=== PATIENT | female | born 2000 | race Caucasian/White ===

== ENCOUNTER 2022-12-17 22:45 | Emergency (ER) | payer SELFPAY ==
[~2022-12-17] VITALS: Ht 155 cm; Wt 104.0 kg
[2022-12-17 22:49] VITALS: BP 119/83
--- NOTE | 2022-12-17 23:14 | ED Back Pain ---
General Chief Complaint: Back Problems Stated Complaint: BACK PAIN Source of Information: Patient History of Present Illness Date Seen by Provider: Dec 17, 2022 Time Seen by Provider: 23:00 Initial Comments PT ARRIVES VIA POV FROM HOME C/O LEFT LOWER BACK / LEFT FLANK PAIN X 2-3 DAYS NO RADIATION OF PAIN NOTHING IMPROVES PAIN PAIN IS WORSE WITH WALKING OR LAYING ON LEFT SIDE. NO PARESTHESIAS OR MOTOR DEFICITS NO URINARY SYMPTOMS NO FEVER + NAUSEA, NO VOMITING. NO INJURY OR UNUSUAL ACTIVITY NO HISTORY OF SIMILAR NO RELIEF WITH TYLENOL AND IBUPROFEN 2 HOURS AGO LMP--IUD IN PLACE, SINCE 09/2021. NO PERIOD SINCE THEN NO CHRONIC MEDICAL PROBLEMS, NO PRIOR SURGERIES Other Comments PCP: Allergies and Home Medications Allergies Coded Allergies: No Known Drug Allergies (Unverified , 12/17/22) Patient Home Medication List Cefdinir (Cefdinir) 300 Mg Capsule, 300 MG PO BID Prescribed by: CHARLOTTE ZAVALETA on 12/18/2235 Cyclobenzaprine HCl (Cyclobenzaprine HCl) 10 Mg Tablet, 10 MG PO Q8H PRN for SPASMS Prescribed by: CHARLOTTE ZAVALETA on 12/18/2235 Meloxicam (Meloxicam) 15 Mg Tablet, 15 MG PO DAILY Prescribed by: CHARLOTTE ZAVALETA on 12/18/2235 Review of Systems Constitutional: no symptoms reported Respiratory: no symptoms reported Cardiovascular: no symptoms reported Gastrointestinal: see HPI; No abdominal pain, No constipation; nausea Genitourinary: no symptoms reported : No Control/STD Prophylaxis: IUD Musculoskeletal: see HPI, back pain Skin: no symptoms reported Psychiatric/Neurological: No Symptoms Reported Past [id number] Hx Patient Social History Tobacco Use?: No Substance use?: No Alcohol Use?: No Past Medical History Surgeries: No Respiratory: No Cardiac: No Neurological: No Reproductive Disorders: No [employer] History: IUD Genitourinary: No Gastrointestinal: No Musculoskeletal: No Endocrine: Yes (OBESITY) HEENT: No Cancer: No Psychosocial: No Integumentary: No Blood Disorders: No Physical Exam Vital Signs Vital Signs - First Documented 12/17/22 22:49 Temp 36.1 Pulse 97 Resp 18 B/P (MAP) 119/83 (95) Pulse Ox 98 O2 Delivery Room Air Capillary Refill : Height, Weight, BMI Height: '" Weight: lbs. oz. kg; BMI Method: General Appearance: No Apparent Distress, WD/WN, Obese, Other (TEARFUL AT TIMES. WALKS SLOWLY) Cardiovascular: Regular Rate, Rhythm, No Murmur, Normal Peripheral Pulses Respiratory: Normal Breath Sounds, No Accessory Muscle Use, No Respiratory Distress Gastrointestinal: Non Tender, Soft Back: No CVA Tenderness, No Vertebral Tenderness, Decreased Range of Motion Extremity: Normal Inspection Neurologic/Psychiatric: Alert, Oriented x3, No Motor/Sensory Deficits, patrol police lieutenant II- XII Norm as Tested Skin: Normal Color, Warm/Dry; No Rash Progress/Results/Core Measures Results/Orders Lab Results Laboratory Tests Test 12/17/22 23:21 Range/Units Urine Color YELLOW Urine Clarity CLEAR Urine pH 5.5 5-9 Urine Specific [place] >=1.030 1.016-1.022 Urine Protein NEGATIVE NEGATIVE Urine Glucose (UA) NEGATIVE NEGATIVE Urine Ketones TRACE H NEGATIVE Urine Nitrite NEGATIVE NEGATIVE Urine Bilirubin NEGATIVE NEGATIVE Urine Urobilinogen 0.2 < = 1.0 MG/DL Urine Leukocyte Esterase NEGATIVE NEGATIVE Urine RBC (Auto) TRACE-I H NEGATIVE Urine RBC RARE /HPF Urine WBC RARE /HPF Urine Squamous Epithelial Cells 0-2 /HPF Urine Crystals NONE /LPF Urine Bacteria LARGE H /HPF Urine Casts NONE /LPF Urine Mucus SMALL H /LPF Urine Culture Indicated YES My Orders Orders - CHARLOTTE ZAVALETA DO Urine Bedside (12/17/22 23:00) Ua Culture If Indicated (12/17/22 23:00) Urine Culture (12/17/22 23:21) Ct Abd/Pelvis Wo(Kidney Stone) (12/17/22 23:42) Ketorolac Injection (Toradol Injection) (12/18/22 00:45) Orphenadrine Inj (Ed Only) (Norflex Inje (12/18/22 00:45) Ceftriaxone Iv/Im (Rocephin Iv/Im) (12/18/22 00:45) Lidocaine 1% Inj 20 Ml (Xylocaine 1% Inj (12/18/22 00:45) Vital Signs/I&O 12/17/22 22:49 Temp 36.1 Pulse 97 Resp 18 B/P (MAP) 119/83 (95) Pulse Ox 98 O2 Delivery Room Air Progress Progress Note : Progress Note PT IS AFEBRILE WITH STABLE VITALS PT IS NON-TENDER TO PALPATION URINE TEST NEGATIVE UA WITH LARGE BACTERIA, TRACE BLOOD. CT SCAN ORDERED AND DOES NOT SHOW ACUTE PROCESS, INCIDENTAL FINDING OF CHOLELITHIASIS. GIVEN: -TORADOL -NORFLEX -ROCEPHIN DISCUSSED TEST RESULTS, ANTICIPATED COURSE, SYMPTOMATIC TREATMENT, NEED FOR FOLLOW UP AND RETURN PRECAUTIONS. DISCUSSED INCIDENTAL FINDING OF CHOLELITHIASIS, AND SHE IS ASYMPTOMATIC, WILL DEFER TO HER PCP FOR ANY REFERRAL TO SURGEON. REVIEWED PRIOR RECORDS--ER VISIT HERE IN 2006. Diagnostic Imaging Comments CT ABDOMEN/PELVIS--PER [facility] VIA FAX AT 0024 -NO ACUTE FINDINGS IN ABDOMEN OR PELVIS -CHOLELITHIASIS NOTED. NO DUCTAL DILATION Reviewed: Reviewed by Me Departure Impression Primary Impression: UTI (urinary tract infection) Additional Impressions: Cholelithiasis Asymptomatic cholelithiasis Disposition: HOME, SELF-CARE Condition: Stable Departure-Patient Inst. Decision time for Depature: 00:25 Referrals: JOHNNY PACK MD (PCP/Family) Primary Care Physician Patient Instructions: Urinary Tract Infection, Adult ED, Gallstones ED Add. Discharge Instructions: LOTS OF CLEAR LIQUIDS--WATER, BROTH, JELLO, GATORADE NO COFFEE, POP OR TEA MOIST HEAT TO BACK AT 20 MINUTE INTERVALS FOLLOW UP WITH DR. PACK IN 2-3 DAYS FOR FURTHER CARE, RETURN TO ER IF WORSE. All discharge instructions reviewed with patient and/or family. Voiced understanding. Scripts Cyclobenzaprine HCl (Cyclobenzaprine HCl) 10 Mg Tablet 10 MG PO Q8H PRN for SPASMS, #15 TAB 0 Refills Prov: CHARLOTTE ZAVALETA DO 12/18/22 Meloxicam (Meloxicam) 15 Mg Tablet 15 MG PO DAILY, #10 TAB Prov: CHARLOTTE ZAVALETA DO 12/18/22 Cefdinir (Cefdinir) 300 Mg Capsule 300 MG PO BID, #20 CAP Prov: CHARLOTTE ZAVALETA DO 12/18/22 CHARLOTTE ZAVALETA DO Dec 17, 2022 23:14
[2022-12-17 23:34] LABS: BILIRUBIN,URINE NEGATIVE (NEGATIVE); CLARITY,URINE CLEAR; COLOR,URINE YELLOW; GLUCOSE, URINE (UA) NEGATIVE (NEGATIVE); KETONES,URINE TRACE (NEGATIVE); LEUKOCYTE ESTERASE ,URINE NEGATIVE (NEGATIVE); NITRITE,URINE NEGATIVE (NEGATIVE); PH,URINE 5.5 (5-9); PROTEIN,URINE NEGATIVE (NEGATIVE)
[2022-12-17 23:40] LABS: BACTERIA,URINE LARGE /HPF; RBC,URINE RARE /HPF; SQUAMOUS EPITHELIAL CELL,UR 0-2 /HPF; WBC,URINE RARE /HPF
[2022-12-18] MEDS ORDERED: MELO15TA39 PO (00:36)
[2022-12-18] MEDS ORDERED: CEFD300C3 PO (00:36)
[2022-12-18] MEDS ORDERED: CYCL10TA25 PO (00:36)
[2022-12-18] MEDS ORDERED: cefTRIAXone 1,000 MG VIAL (for IV or IM) IM ONE (00:45)
[2022-12-18] MEDS ORDERED: LIDOCAINE 1% INJ 20 ML VIAL INJ ONE (00:45)
[2022-12-18] MEDS ORDERED: ORPHENADRINE 60 MG/2 ML (NORFLEX) AMP (ED ONLY) IM ONE (00:45)
[2022-12-18] MEDS ORDERED: KETOROLAC 60 MG/2 ML VIAL IM ONE (00:45)
--- NOTE | 2022-12-18 07:03 | Diagnostic Imaging Report ---
INDICATION: Abdominal pain TECHNIQUE: Multiple contiguous axial images were obtained through the abdomen and pelvis without the use of intravenous contrast. Auto Exposure Controls were utilized during the CT exam to meet ALARA standards for radiation dose reduction. There is no prior study for comparison The visualized portions of the lung bases are clear. There were no pleural fluid collections. There is no free intraperitoneal air. The liver shows no focal lesion. There is a prominent gallstone in the gallbladder. Spleen, adrenals, and pancreas are normal. The kidneys bilaterally are unremarkable. There is no retroperitoneal mass or adenopathy. There is a small fat-containing periumbilical hernia. Visualized bowel loops show no sign of obstruction. The appendix appears normal. There is an IUD in place in the uterus. There is a small right adnexal cyst measuring 2.5 cm. IMPRESSION: Prominent gallstone in the gallbladder measuring 2.1 cm. Small fat-containing periumbilical hernia. 2.5 cm right adnexal cyst. IUD in place in the uterus. Dictated by: Dictated on workstation # [id number]
== END 2022-12-18 01:03 | disposition home or self-care (01) ==
LOC: EDUNIT# 22:45 → ER 22:47
DX: N39.0 Urinary tract infection, site not specified (principal); K80.20 Calculus of gallbladder without cholecystitis without obstruction; E66.9 Obesity, unspecified; Z68.41 Body mass index [BMI] 40.0-44.9, adult
CPT/HCPCS: 74176; 81000; 84703; 87088